=== PATIENT | male | born 1970 | race Caucasian/White ===

== ENCOUNTER 2020-07-17 14:23 | Emergency (ER) | payer BC, OTHER ==
[~2020-07-17] VITALS: Ht 180.3 cm; Wt 65.8 kg
[2020-07-17 17:45] VITALS: BP 143/91
== END 2020-07-17 17:47 | disposition home or self-care (01) ==
LOC: ER 14:23
DX: S09.90XA Unspecified injury of head, initial encounter (principal); F17.210 Nicotine dependence, cigarettes, uncomplicated; W19.XXXA Unspecified fall, initial encounter; Y93.89 Activity, other specified; Y92.89 Other specified places as the place of occurrence of the external cause; Y99.8 Other external cause status
CPT/HCPCS: 70450